=== PATIENT | female | born 1990 | race Caucasian/White ===

== ENCOUNTER 2023-10-09 13:31 | Emergency (ER) | payer MEDICAID ==
[~2023-10-09] VITALS: Ht 175.3 cm; Wt 61.9 kg
[2023-10-09 14:08] LABS: BILIRUBIN, URINE NEGATIVE (negative); BLOOD/HGB, URINE NEGATIVE (Negative); KETONE, URINE NEGATIVE (Negative); LEUK ESTERASE, URINE NEGATIVE (negative); NITRITE, URINE NEGATIVE (negative)
[2023-10-09 14:09] LABS: BASOPHILS 0.4 % (0-2); EOSINOPHILS 0.4 % (0-6); HEMATOCRIT 42.1 % (35.0-50.0); HEMOGLOBIN 14.5 g/dL (12.0-18.0); LYMPHOCYTES 11.4 % (24-44); MCHC 34.6 g/dl (30-36); MCV 92.6 fl (81-99); MONOCYTES 5.7 % (0-12); NEUTROPHILS 82.1 % (39-80); PLATELET COUNT 210 K/uL (140-440); RBC 4.54 M/ul (4.3-5.7)
[2023-10-09] MEDS ORDERED: ondansetron HCL 4 MG/2 ML VIAL IV ONE ×2 (14:15→19:15)
[2023-10-09 14:24] LABS: ALBUMIN 3.4 g/dL (3.4-5.0); ALBUMIN/GLOBULIN RATIO 0.87 (1.1-2.4); ANION GAP 11.4 (7-21); BILIRUBIN, TOTAL 0.5 ng/dL (0.2-1.0); BUN/CREATININE RATIO 9.3 (6.0-28.6); CREATININE, SERUM 0.86 mg/dL (0.55-1.02); POTASSIUM 3.4 mmol/L (3.5-5.1); PROTEIN, TOTAL 7.3 g/dL (6.4-8.2)
[2023-10-09] MEDS ORDERED: SODIUM CHLORIDE 0.9% 1,000 ML IV ONE (15:15)
[2023-10-09] MEDS ORDERED: DICYCLOMINE HCL 10 MG CAP PO ONE (15:15)
[2023-10-09] MEDS ORDERED: LIDOCAINE & ANTACID 35 ML BTL PO ONE (19:15)
[2023-10-09] MEDS ORDERED: ONDANSETRON ODT8 MG PO (19:36)
[2023-10-09] MEDS ORDERED: PANTOPRAZOLE SODIUM 40 MG/10 ML VIAL IV ONE (19:45)
[2023-10-09 20:14] VITALS: BP 101/61
== END 2023-10-09 20:15 | disposition home or self-care (01) ==
LOC: ED 13:31
PROVIDERS: Emergency Medicine
DX: R10.10 Upper abdominal pain, unspecified (principal); Z88.8 Allergy status to other drugs, medicaments and biological substances; Z88.1 Allergy status to other antibiotic agents; Z88.2 Allergy status to sulfonamides; K21.9 Gastro-esophageal reflux disease without esophagitis
CPT/HCPCS: 36415; 80053; 81003; 83690; 85025; 96361; 96374; 96375; 96376; 99284-25; C9113; J2405; J7030

== ENCOUNTER 2024-05-19 16:28 | Emergency (ER) | payer OTHER ==
[~2024-05-19] VITALS: Ht 175.3 cm; Wt 61.4 kg
[~2024-05-19 16:28] MED LIST: ONDANSETRON ODT8 MG PO
[2024-05-19] MEDS ORDERED: FAMCICLOVIR500 MG PO (17:14)
[2024-05-19] MEDS ORDERED: ACYCLOVIR 400 MG TAB PO ONE (17:15)
[2024-05-19 17:31] VITALS: BP 117/68
== END 2024-05-19 17:30 | disposition home or self-care (01) ==
LOC: ED 16:28
DX: B02.9 Zoster without complications (principal); K21.9 Gastro-esophageal reflux disease without esophagitis; Z88.1 Allergy status to other antibiotic agents; Z88.2 Allergy status to sulfonamides; Z88.8 Allergy status to other drugs, medicaments and biological substances
CPT/HCPCS: 99283; A9270